=== PATIENT | female | born 1995 | race Caucasian/White ===

== ENCOUNTER 2023-08-23 15:34 | Emergency (ER) | payer OTHER ==
[2023-08-23 15:39] VITALS: BP 109/64; PULSE 76; RESP 20; TEMP 98.2; BMI 22.8
[2023-08-23 16:23] LABS: BASO % 0.6 % (0-2.0); EOS % 1.1 % (0-4.5); HEMATOCRIT 39.8 % (32.4-45.2); HEMOGLOBIN 13.4 GM/dL (10.7-15.3); LYMPH % 23.3 % (8-40); MCH 28.3 pg (25.7-33.7); MCHC 33.7 g/dl (32.0-36.0); MEAN CELL VOLUME 83.9 fl (80-96); MEAN PLT VOLUME 9.5 fl (7.5-11.1); MONO % 6.9 % (3.8-10.2); NEUT % 68.1 % (42.8-82.8); PLATELET COUNT 195 10^3/uL (134-434); RBC 4.74 M/mm3 (3.60-5.2); RDW 13.9 % (11.6-15.6)
[2023-08-23] MEDS: ACETAMINOPHEN 1000 MG/100 ML BAG IVPB ONE (16:28)
[2023-08-23 16:30] LABS: EPI CELLS >36 /uL (0-25.1); HYALINE CASTS 0 /uL (0-3.1); PH,URINE 6.5 (5.0-8.0); URINE APPEARANCE CLEAR; URINE BACTERIA 737 /uL (0-1359); URINE BILIRUBIN NEGATIVE (NEGATIVE); URINE COLOR YELLOW; URINE GLUCOSE (UA) NEGATIVE (NEGATIVE); URINE KETONE NEGATIVE (NEGATIVE); URINE LEUK ESTERASE TRACE (NEGATIVE); URINE NITRITE NEGATIVE (NEGATIVE); URINE PROTEIN NEGATIVE (NEGATIVE); URINE RBC 25 /uL (0-23.9); URINE WBC 53 /uL (0-25.8)
[2023-08-23 16:48] LABS: POTASSIUM 3.6 mmol/L (3.5-5.1)
[2023-08-23 16:50] LABS: ALBUMIN 4.2 g/dl (3.4-5.0); BLOOD UREA NITROGEN 13.5 mg/dL (7-18); CALCIUM 9.5 mg/dL (8.5-10.1)
[2023-08-23 16:53] LABS: CREATININE 0.7 mg/dL (0.55-1.3)
[2023-08-23 16:55] LABS: BILIRUBIN,TOTAL 0.3 mg/dL (0.2-1); TOT PROT 7.9 g/dl (6.4-8.2)
[2023-08-23] MEDS ORDERED: ACETAMINOPHEN 500 MG TABLET (FP) ONE ×2 (18:28→18:30)
[2023-08-23] MEDS: ACETAMINOPHEN 500 MG TABLET (FP) PO ONE (18:51)
== END 2023-08-23 20:14 | disposition home or self-care (01) ==
LOC: JER 15:34
DX: O20.9 Hemorrhage in early pregnancy, unspecified (principal); O26.891 Other specified pregnancy related conditions, first trimester; R10.30 Lower abdominal pain, unspecified; O23.90 Unspecified genitourinary tract infection in pregnancy, unspecified trimester; R82.71 Bacteriuria; Z3A.01 Less than 8 weeks gestation of pregnancy
CPT/HCPCS: 36415; 76817-TC; 80053; 81003; 84702; 85025; 86850; 86900; 86901; 87086; 99284-25

== ENCOUNTER 2024-02-21 10:42 | Inpatient (IN) | payer OTHER ==
[2024-02-21 12:24] VITALS: BMI 21.8
[2024-02-21] MEDS: DEXTROSE 5%-LACTATED RINGERS 1,000 ML IV SCH (12:27)
[2024-02-21 12:48] LABS: EPI CELLS 17 /uL (0-25.1); HYALINE CASTS 3 /uL (0-3.1); PH,URINE 5.5 (5.0-8.0); URINE APPEARANCE CLEAR; URINE BACTERIA 119 /uL (0-1359); URINE BILIRUBIN NEGATIVE (NEGATIVE); URINE COLOR YELLOW; URINE GLUCOSE (UA) NEGATIVE (NEGATIVE); URINE KETONE 3+ (NEGATIVE); URINE LEUK ESTERASE 1+ (NEGATIVE); URINE NITRITE NEGATIVE (NEGATIVE); URINE PROTEIN NEGATIVE (NEGATIVE); URINE RBC 17 /uL (0-23.9); URINE UROBILINOGEN 0.2 mg/dL (0.2-1.0); URINE WBC 237 /uL (0-25.8)
[2024-02-21 12:51] LABS: HEMOGLOBIN 12.2 GM/dL (10.7-15.3); MCH 29.2 pg (25.7-33.7); MEAN PLT VOLUME 10.4 fl (7.5-11.1); PLATELET COUNT 130 10^3/uL (134-434); RBC 4.18 M/mm3 (3.60-5.2); RDW 14.5 % (11.6-15.6); WHITE BLOOD COUNT 13.8 K/mm3 (4.0-10.0)
[2024-02-21 12:53] LABS: INR 1.01 (0.83-1.09); PROTHROMBIN TIME (PATIENT) 11.4 SEC (9.7-13.0)
[2024-02-21 12:55] LABS: ACTIVATED PTT 27.3 SECONDS (25.2-36.5)
[2024-02-21 13:02] LABS: POTASSIUM 3.4 mmol/L (3.5-5.1)
[2024-02-21 13:03] LABS: CALCIUM 8.6 mg/dL (8.5-10.1)
[2024-02-21 13:06] LABS: CREATININE 0.5 mg/dL (0.55-1.3)
[2024-02-21] MEDS ORDERED: MAGNESIUM IVPB ONE (13:10)
[2024-02-21] MEDS ORDERED: CLINDAMYCIN 900 MG PREMIX IVPB 900 MG/50 ML BAG IVPB ONE (13:14)
[2024-02-21] MEDS: CLINDAMYCIN 900 MG PREMIX IVPB 900 MG/50 ML BAG IVPB ONE (13:23)
[2024-02-21] MEDS ORDERED: ACETAMINOPHEN 325 MG TABLET (FP) ONE (13:24)
[2024-02-21 13:42] VITALS: RESP 20
[2024-02-21] MEDS ORDERED: ACETAMINOPHEN 325 MG TABLET (FP) PO ONE (14:00)
[2024-02-21 14:01] LABS: POC NITRAZINE NEG
[2024-02-21 14:27] LABS: ANISOCYTOSIS 0; MACROCYTOSIS 0; OVALOCYTE 1+
[2024-02-21 14:30] VITALS: BP 105/70; PULSE 91; TEMP 98.5
[2024-02-21] MEDS ORDERED: CLINDAMYCIN 600MG PREMIX IVPB 600 MG/50 ML BAG IVPB SCH (18:00)
== END 2024-02-21 15:15 | disposition short-term general hospital (02) | DRG 566 ==
LOC: JDEL 10:42 → JLDR 11:40
PROVIDERS: ADMIT Obstetrics & Gynecology; ATTEND Obstetrics & Gynecology
DX: O42.912 Preterm premature rupture of membranes, unspecified as to length of time between rupture and onset of labor, second trimester (principal); Z3A.20 20 weeks gestation of pregnancy
CPT/HCPCS: 36415; 80048; 81003; 83986-QW; 85025; 85610; 85730; 86780; 86850; 86900; 86901; 87077; 87086; 87635